=== PATIENT | male | born 1975 | race Caucasian/White ===

== ENCOUNTER 2017-02-23 11:24 | Emergency (ER) | payer SELFPAY ==
[2017-02-23 13:35] VITALS: BP 102/64
== END 2017-02-23 13:35 | disposition home or self-care (01) ==
LOC: ED 11:24
DX: H10.33 Unspecified acute conjunctivitis, bilateral (principal)

== ENCOUNTER 2019-02-06 12:58 | Emergency (ER) | payer OTHER ==
[~2019-02-06] VITALS: Ht 165.1 cm; Wt 69.4 kg
[2019-02-06 13:01] VITALS: Ht 165.1 cm; Wt 69.4 kg
[2019-02-06 14:48] VITALS: BP 103/48
== END 2019-02-06 14:48 | disposition home or self-care (01) ==
LOC: ED 12:58
DX: R21 Rash and other nonspecific skin eruption (principal); L29.9 Pruritus, unspecified